=== PATIENT | female | born 2005 | race African-American/Black ===

== ENCOUNTER 2024-06-22 18:10 | Emergency (ER) | payer SELFPAY ==
[~2024-06-22] VITALS: Ht 170.2 cm; Wt 70.5 kg
[2024-06-22] MEDS ORDERED: LEXAPRO10 MG PO (18:29)
[2024-06-22] MEDS ORDERED: IBUPROFEN600 MG PO (18:56)
[2024-06-22] MEDS ORDERED: THERAFLU FLU &1 EAC1 PO (18:56)
[2024-06-22] MEDS ORDERED: ONDANSETRON ODT4 MG PO (18:56)
[2024-06-22 19:07] VITALS: PULSE 86; RESP 16; TEMP 98.6; O2SAT 100
== END 2024-06-22 19:07 | disposition home or self-care (01) ==
LOC: FSED 18:13
DX: R05.9 Cough, unspecified (principal); J10.1 Influenza due to other identified influenza virus with other respiratory manifestations; F41.9 Anxiety disorder, unspecified; F32.A Depression, unspecified; Z11.52 Encounter for screening for COVID-19
CPT/HCPCS: 0223U; 83518; 87400; 99283